=== PATIENT | male | born 1955 | race American Indian/Alaskan Native ===

== ENCOUNTER 2018-10-04 09:27 | Outpatient (CLI) | payer BC | END 2018-10-04 09:28 | disposition home or self-care (01) | LOC: RAD 09:27 ==

== ENCOUNTER 2018-10-06 10:07 | Outpatient (CLI) | payer BC | END 2018-10-06 10:08 | disposition home or self-care (01) | LOC: CARDIO 10:07 | DX: I73.9 Peripheral vascular disease, unspecified (principal) ==

== ENCOUNTER 2018-11-01 08:30 | Outpatient (CLI) | payer BC | END 2018-11-01 08:31 | disposition home or self-care (01) | LOC: LAB 08:30 ==

== ENCOUNTER 2018-11-02 06:47 | Outpatient (CLI) | payer BC | END 2018-11-02 06:48 | disposition home or self-care (01) | LOC: CARDIO 06:47 ==

== ENCOUNTER 2018-11-04 07:25 | Outpatient (CLI) | payer BC | END 2018-11-04 07:26 | disposition home or self-care (01) | LOC: RAD 07:25 | DX: R10.9 Unspecified abdominal pain (principal) ==

== ENCOUNTER 2018-11-08 06:20 | Day surgery (SDC) | payer BC ==
[2018-11-02 10:27] VITALS: BMI 28.1
[2018-11-08] MEDS ORDERED: Lidocaine PF 2% (5 ml) Inj (For Cardiac Arrhy) ONE (06:53)
[2018-11-08] MEDS ORDERED: Iohexol 350mgl/ml 50 ML ONE (06:54)
[2018-11-08] MEDS ORDERED: Iodixanol 320 MG/ML 100 ML BOTTLE IV ONE (06:54)
[2018-11-08] MEDS ORDERED: Iodixanol 320 MG/ML 200 ML BOTTLE IV ONE (06:54)
[2018-11-08] MEDS ORDERED: Nitroglycerin 50mg in D5W 0 MG/0 ML BOTTLE IV ONE (06:57)
[2018-11-08] MEDS ORDERED: Phenylephrine 10 mg/ml Inj ONE (06:58)
[2018-11-08 07:16] LABS: BASO # 0.02 {null, K/mm3} (0.0-2.0); BASO % 0.6 % (0.0-3.0); EOS # 0.3 (0.0-0.7); EOS % 7.5 % (1.5-5.0); HEMOGLOBIN 10.4 g/dL (14.0-18.0); LYMPH # 1.8 (1.2-3.4); LYMPH % 49.2 % (22.0-35.0); MEAN CELL VOLUME 84.5 fl (80.0-105.0); MEAN CORPUSCULAR HEMOGLOBIN 27.8 pg (25.0-35.0); MEAN CORPUSCULAR HGB CONC 32.9 g/dl (31.0-37.0); MEAN PLATELET VOLUME 10.7 fl (7.0-11.0); MONO # 0.3 (0.1-0.6); MONO % 8.7 % (1.0-6.0); RBC 3.74 {null, 10^6/uL} (3.5-6.1); RED CELL DISTRIBUTION WIDTH 13.1 % (11.5-14.5); WHITE BLOOD COUNT 3.6 {null, 10^3/uL} (4.5-11.0)
[2018-11-08 07:22] LABS: INR 1.1; PARTIAL THROMBOPLASTIN TIME 33.9 Seconds (26.9-38.3); PROTHROMBIN TIME 12.4 SECONDS (9.4-12.5)
[2018-11-08 07:26] LABS: BLOOD UREA NITROGEN 19 mg/dL (7-21); CALCIUM 9.5 mg/dL (8.4-10.5); GFR NON-AFRICAN AMERICAN > 60; HDL CHOLESTEROL 37 mg/dL (29-60)
[2018-11-08 07:29] VITALS: RESP 18
[2018-11-08 07:30] LABS: LDL CHOLESTEROL 94 mg/dL (0-129)
[2018-11-08] MEDS ORDERED: Midazolam 2 MG/2 ML VIAL ONE ×2 (08:09→08:14)
[2018-11-08] MEDS ORDERED: Adenosine 90 mg/30mL IV ONE (08:28)
[2018-11-08 09:15] VITALS: TEMP 97.6
[2018-11-08] MEDS ORDERED: Sodium Chloride 0.9% 1,000 ML IV SCH (09:15)
--- NOTE | 2018-11-08 10:10 | CARD ---
APPROVED REPORT Date of service: 11/08/2018 EKG Measurement Heart [id number] <Conclusion> Normal sinus rhythm Moderate voltage criteria for LVH, may be normal variant Borderline ECG
[2018-11-08 10:41] VITALS: O2SAT 97
--- NOTE | 2018-11-08 10:42 | CARDCATH ---
PROCEDURE DATE: 11/08/2018 HISTORY: The patient is a 63-year-old male who presents with an abnormal stress test. He was found to have a cardiomyopathy with an EF in the 40s of unknown origin. He suffers from hypertension as well as hypercholesterolemia. Because of this, cardiac catheterization was recommended. PROCEDURES: Left heart catheterization with coronary arteriography, supra-aortic valvular injection and a left ventriculogram followed by FFR of the LAD were performed. The right femoral artery was cannulated with 6-[place] sheath. There were no complications. I performed moderate sedation which included the presence of an independent trained observer that assisted in monitoring the patient's level of consciousness and physiologic status. After administration of Versed and fentanyl, my intra-service time was 30 minutes. The findings on catheterization revealed a left ventricle that was mildly hypokinetic. Estimated ejection fraction is between 45% and 50%. Supra-aortic valvular injection revealed no aortic insufficiency. His coronary anatomy revealed a left dominant circulation. The RCA was a small vessel with mild intimal irregularities without critical lesions. The left main artery revealed intimal irregularities without critical lesions. The LAD revealed an eccentric 50% stenosis in its proximal portion. The rest of the LAD and diagonal vessels revealed intimal irregularities. The circumflex artery and obtuse marginal branches revealed intimal irregularities without critical lesions. The patient was started on intravenous Angiomax on the fluoroscopic guide, the guider was placed in the ostium of the left main artery. The FFR wire was placed in the LAD past critical stenoses. After administration of adenosine, the FFR was measured to be 0.88. No intervention of the LAD was performed. AngioSeal was used to close the femoral artery site. The patient tolerated the procedure well. In summary, the procedure revealed single-vessel CAD with a 50% proximal LAD stenoses. FFR of the LAD was 0.88. No intervention was performed on the LAD lesion. The rest of his cardiac catheterization revealed mild LV hypokinesis with an EF of 45% to 50% with no aortic insufficiency. Given these findings, the patient's treatment will be continued medical therapy. Aggressive cardiac risk reduction program would be appropriate including hypertension control and cholesterol control. Suman Pugh MD
[2018-11-08 13:43] VITALS: PULSE 67
[2018-11-08 13:47] VITALS: BP 136/84
== END 2018-11-08 14:35 | disposition home or self-care (01) ==
LOC: CATH 06:20 → SDSVAS 06:20 → CATH 14:35
PROVIDERS: ATTEND Internal Medicine Cardiovascular Disease
DX: I25.110 Atherosclerotic heart disease of native coronary artery with unstable angina pectoris (principal); I10 Essential (primary) hypertension; R94.39 Abnormal result of other cardiovascular function study; D64.9 Anemia, unspecified; E78.00 Pure hypercholesterolemia, unspecified; Z85.46 Personal history of malignant neoplasm of prostate; Z90.79 Acquired absence of other genital organ(s); Z87.11 Personal history of peptic ulcer disease; I42.9 Cardiomyopathy, unspecified
CPT/HCPCS: 36415; 80048; 80061; 85025; 85610; 85730; 86850; 86900; 93005; 93458; 93571; 99152; C1769 ×2; C1887; C2629; J0153; J0583; J1644; J2250; J3010; J7030; J7040; Q9966; Q9967 ×2